=== PATIENT | male | born 1935 | race Hispanic/Latino ===

== ENCOUNTER 2017-04-23 17:33 | Inpatient (IN) | payer MEDICARE ==
[2017-04-23 17:39] VITALS: BMI 25.1
[2017-04-23 18:31] LABS: HEMOGLOBIN 9.2 g/dL (12.0-18.0); MEAN CELL VOLUME 97.1 fL (80.0-94.0); MEAN CORPUSCULAR HEMOGLOBIN 32.2 pg (27.0-31.0); MEAN CORPUSCULAR HGB CONC 33.1 g/dL (33.0-37.0); MEAN PLATELET VOLUME 10.7 fL (7.2-11.7); RBC 2.87 Mil/uL (4.40-5.90); RED CELL DISTRIBUTION WIDTH 15.7 % (11.5-14.5); WHITE BLOOD COUNT 6.2 K/uL (4.8-10.8)
--- NOTE | 2017-04-23 18:31 | C.PDOC ---
History Of Present Illness 81 y/o male presents to ED with complaints of having 2 syncopal episodes. 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 As per son, it lasted about 5 seconds and patient was pale but not sweaty. Then as patient was assisted by son and water was provided, patient had trouble swallowing and had his second syncopal episode; associated with incontinence of urine and stool. He was immediately awake but seemed a little confused but knew where he was. Pt states he did not feel the episodes coming and never experienced similar symptoms. He had no associated chest pain, palpitations, abdominal pain or headache. Denies visual disturbances, or any other physical complaints. Time Seen by Provider: 04/23/17 17:52 Chief Complaint (Nursing): Syncope History Per: Patient History/Exam Limitations: no limitations Onset/Duration Of Symptoms: Hrs Current Symptoms Are (Timing): Still Present Activity At Onset Of Symptoms: Other (Bending down) Associated Symptoms Preceding Syncopal Episode: denies: Lightheadedness, Worse With Standing, Vertigo, Vertigo Worse With Change In Head Position Seizure Or Post-ictal Symptoms: Incontinent Of Urine, Incontinent Of Stool. denies: Generalized Seizure Activity, Post-ictal Period Fall Associated With With Symptoms: No Recent travel outside of the [place]: No - Symptoms Of CVA Associated Symptoms: New Confusion. denies: Impaired Speech, Seizure Activity, New Vision Deficit(Left), New Vision Deficit(Right), Decreased Ability To Walk Recent Head Trauma: No Past Medical History Reviewed: Historical Data, Nursing Documentation, Vital Signs Vital Signs: Last Vital Signs Temp 97.2 F L 04/23/17 17:39 Pulse 62 04/23/17 17:39 Resp 20 04/23/17 17:39 BP 130/63 04/23/17 17:39 Pulse Ox 94 L 04/23/17 18:37 - Medical History PMH: HTN, Hyperlipidemia Surgical History: No Surg Hx Family History: States: No Known Family Hx - Social History Hx Alcohol Use: Yes Hx Substance Use: No Review Of Systems Constitutional: Negative for: Fever, Chills, Weakness Eyes: Negative for: Vision Change Respiratory: Negative for: Shortness of Breath Gastrointestinal: Negative for: Nausea, Vomiting, Abdominal Pain, Diarrhea Genitourinary: Negative for: Incontinence Neurological: Negative for: Weakness, Numbness, Confusion Physical Exam - Physical Exam Appears: Well, Non-toxic, No Acute Distress, Other (Awake and alert) Skin: Normal Color, Warm, Dry Head: Atraumatic, Normacephalic Eye(s): bilateral: Normal Inspection Oral Mucosa: Moist Neck: Supple Chest: Symmetrical, No Tenderness Cardiovascular: Rhythm Regular Respiratory: No Decreased Breath Sounds, No Accessory Muscle Use, No Rales, No Wheezing Gastrointestinal/Abdominal: Soft, No Tenderness Extremity: Normal ROM Neurological/Psych: Oriented x3, Normal Speech, Normal Cognition, Other (no focal deficits) Gait: Steady ED Course And Treatment - Laboratory Results Result Diagrams: 04/23/17 18:28 O2 Sat by Pulse Oximetry: 94 (RA) Pulse Ox Interpretation: Normal Progress Note: Ordered EKG, blood work, CXR, and urinalyis. Disposition - Disposition Disposition Time: 18:59 Condition: STABLE Forms: [facility] (Guinean) - Clinical Impression Clinical Impression: Syncope - Scribe Statement The provider has reviewed the documentation as recorded by the Scribluigi Duffy All medical record entries made by the Scribe were at my direction and personally dictated by me. I have reviewed the chart and agree that the record accurately reflects my personal performance of the history, physical exam, medical decision making, and the department course for this patient. I have also personally directed, reviewed, and agree with the discharge instructions and disposition. Physician Patient Turnover Patient Signed Over To: Theresa Bee Handoff Comments: pending labs and CT.
[2017-04-23 18:36] LABS: PLATELET COUNT 100 K/uL (130-400)
[2017-04-23 18:54] LABS: ALB/GLOB RATIO 0.9 (1.0-2.1); ALBUMIN 3.8 g/dL (3.5-5.0); ALT/SGPT 22 U/L (21-72); AST/SGOT 23 U/L (17-59); BLOOD UREA NITROGEN 22 mg/dL (9-20); CALCIUM 8.4 mg/dl (8.6-10.4); GFR AFRICAN-AMERICAN 59; GFR NON-AFRICAN AMERICAN 48
[2017-04-23 19:25] LABS: ANISOCYTOSIS SLIGHT; BANDS 1 % (0-2); HYPOCHROMIC SLIGHT; LYMPHOCYTE 6 % (20-40); MICROCYTOSIS SLIGHT; MONOCYTE 24 % (0-10); NEUTROPHIL 67 % (50-75); PLATELET ESTIMATE DECREASED (NORMAL); POLYCHROMIC SLIGHT; REACTIVE LYMPHOCYTES 2 % (0-0); TOTAL CELLS COUNTED 100
[2017-04-23 20:26] LABS: SQUAMOUS EPITHIAL < 1 /hpf (0-5); URINE BACTERIA OCC (<OCC); URINE BILIRUBIN NEGATIVE (NEGATIVE); URINE BLOOD NEGATIVE (NEGATIVE); URINE CLARITY Hazy (Clear); URINE COLOR Yellow (YELLOW); URINE GLUCOSE (UA) NORMAL (Normal); URINE LEUKOCYTE ESTERASE NEG Leu/uL (Negative); URINE NITRATE NEGATIVE (NEGATIVE); URINE PROTEIN NEGATIVE (NEGATIVE)
--- NOTE | 2017-04-23 21:34 | CT ---
EXAM: CT Head Without Intravenous Contrast CLINICAL HISTORY: 81 years old, male; Signs and symptoms; Syncope and collapse; Additional info: Syncope/seizure TECHNIQUE: Axial computed tomography images of the head/brain without intravenous contrast. All CT scans at this facility use one or more dose reduction techniques, viz.: automated exposure control; ma/kV adjustment per patient size (including targeted exams where dose is matched to indication; i.e. head); or iterative reconstruction technique. Coronal and sagittal reformatted images were created and reviewed. COMPARISON: No relevant prior studies available. FINDINGS: Brain: Dtya-ow-hmoijsfy atrophy. No intracranial hemorrhage. No mass. Minimal decreased attenuation within periventricular white matter. No definite edema. Ventricles: No hydrocephalus. Bones/joints: No acute fracture. Small intraarticular bodies within temporomandibular joints. Soft tissues: Unremarkable. Vasculature: Atherosclerotic disease of intracranial arteries. Sinuses: No acute sinusitis. Mastoid air cells: No mastoid effusion. Orbits: Unremarkable as visualized. IMPRESSION: 1. Nonspecific white matter changes. Acute infarction may be CT occult within first 24 hours. If a focal deficit persists, consider followup CT or MRI for further evaluation. 2. Incidental/non-acute findings are described above.
[2017-04-24 06:19] LABS: BASO % 0.6 % (0.0-2.0); EOS % 0.2 % (0.0-4.0); HEMOGLOBIN 9.5 g/dL (12.0-18.0); LYMPH % 15.3 % (20.0-40.0); MEAN CELL VOLUME 95.6 fL (80.0-94.0); MEAN CORPUSCULAR HEMOGLOBIN 32.6 pg (27.0-31.0); MEAN CORPUSCULAR HGB CONC 34.1 g/dL (33.0-37.0); MEAN PLATELET VOLUME 10.4 fL (7.2-11.7); MONO % 29.8 % (0.0-10.0); NEUT # 3.5 K/uL (1.8-7.0); NEUT % 54.1 % (50.0-75.0); PLATELET COUNT 88 K/uL (130-400); RBC 2.91 Mil/uL (4.40-5.90); RED CELL DISTRIBUTION WIDTH 14.9 % (11.5-14.5); WHITE BLOOD COUNT 6.5 K/uL (4.8-10.8)
[2017-04-24 06:40] LABS: ALBUMIN 3.6 g/dL (3.5-5.0); ALT/SGPT 21 U/L (21-72); AST/SGOT 23 U/L (17-59); BLOOD UREA NITROGEN 24 mg/dL (9-20); CALCIUM 8.5 mg/dl (8.6-10.4); GFR AFRICAN-AMERICAN > 60; GFR NON-AFRICAN AMERICAN 58; HDL CHOLESTEROL 24 mg/dL (30-70); IRON 70 ug/dL (49-181)
[2017-04-24 06:50] LABS: TOTAL IRON BINDING CAPACITY 251 ug/dL (250-450)
[2017-04-24 06:51] LABS: LDL CHOLESTEROL 55 mg/dL (0-129)
[2017-04-24 07:04] LABS: % IRON SATURATION 28 (20-55)
[2017-04-24 08:47] LABS: TOTAL CELLS COUNTED 100
[2017-04-24 08:48] LABS: ANISOCYTOSIS SLIGHT; LYMPHOCYTE 9 % (20-40); MONOCYTE 21 % (0-10); NEUTROPHIL 68 % (50-75); PLATELET ESTIMATE DECREASED (NORMAL); REACTIVE LYMPHOCYTES 2 % (0-0)
--- NOTE | 2017-04-24 08:48 | RAD ---
PROCEDURE: CHEST RADIOGRAPH, 1 VIEW HISTORY: AMS COMPARISON: None available. FINDINGS: LUNGS: Clear. PLEURA: No pneumothorax or pleural fluid seen. CARDIOVASCULAR: Normal. OSSEOUS STRUCTURES: No significant abnormalities. VISUALIZED UPPER ABDOMEN: Normal. OTHER FINDINGS: None. IMPRESSION: No active disease.
[2017-04-24 08:49] LABS: LARGE PLATELETS PRESENT
[2017-04-24] MEDS ORDERED: Home Med 1 UNIT (Atorvastatin [Lipitor] 1 TAB) PO SCH (10:00)
[2017-04-24] MEDS ORDERED: IRBESARTAN PO SCH (10:00)
[2017-04-24 10:30] VITALS: BP 154/82; PULSE 82; RESP 20; TEMP 98.3; O2SAT 97
[2017-04-24] MEDS ORDERED: Potassium Chloride 20 mEq ER Tab PO ONE (10:45)
--- NOTE | 2017-04-24 10:45 | CP.PCM.PN ---
Subjective - Date & Time of Evaluation Date of Evaluation: 04/24/17 Time of Evaluation: 10:30 - Subjective Subjective: [facility] #[id number] Objective - Vital Signs/Intake and Output Vital Signs (last 24 hours): Temp Pulse Resp BP Pulse Ox 98.3 F 82 20 154/82 H 97 04/24/17 10:28 04/24/17 10:28 04/24/17 10:28 04/24/17 10:28 04/24/17 10:28 - Medications Medications: Current Medications Doxazosin Mesylate (Cardura) 1 mg PO BID MELISSA Folic Acid (Folic Acid) 1 mg PO DAILY MELISSA Losartan Potassium (Cozaar) 100 mg PO DAILY MELISSA Potassium Chloride (K-Dur 20 Meq Er Tab) 40 meq PO ONCE ONE Stop: 04/24/17 10:46 Rosuvastatin Calcium (Crestor) 10 mg PO HS MELISSA Thiamine HCl (Vitamin B1 Tab) 100 mg PO DAILY MELISSA - Labs Labs: 04/24/17 06:15 04/24/17 06:15
--- NOTE | 2017-04-24 14:09 | CP.PCM.PN ---
Subjective - Date & Time of Evaluation Date of Evaluation: 04/24/17 Time of Evaluation: 13:40 - Subjective Subjective: Patient has decided to leave the hospital against medical advice. The patient is competent and understands the risks of leaving, including permanent disability and/or , and has had an opportunity to ask questions about his/ her condition. Patient accepts all risk and liability. Paper work filed. Attending notified by RN. The patient has been informed that he/she may return for care at any time, and patient will follow-up with PMD urgently. Patient does not want to wait until tomorrow to obtain an MRI. He wants to have his MRI at [facility], and understand the risk of leaving. He spoke with the Neurologist consulted. His son was present, and both parties understand the risk of leaving. Objective - Vital Signs/Intake and Output Vital Signs (last 24 hours): Temp Pulse Resp BP Pulse Ox 98.3 F 82 20 154/82 H 97 04/24/17 10:28 04/24/17 10:28 04/24/17 10:28 04/24/17 10:28 04/24/17 10:28 - Labs Labs: 04/24/17 06:15 04/24/17 06:15 - Constitutional Appears: Non-toxic, No Acute Distress - Head Exam Head Exam: ATRAUMATIC, NORMAL INSPECTION - Eye Exam Eye Exam: EOMI, Normal appearance, PERRL Pupil Exam: NORMAL ACCOMODATION - Neck Exam Neck Exam: Full ROM. absent: Lymphadenopathy - Respiratory Exam Respiratory Exam: Clear to Ausculation Bilateral, NORMAL BREATHING PATTERN. absent: Rhonchi, Wheezes - Cardiovascular Exam Cardiovascular Exam: REGULAR RHYTHM, +S1, +S2 - GI/Abdominal Exam GI & Abdominal Exam: Soft, Normal Bowel Sounds. absent: Tenderness - Extremities Exam Extremities Exam: absent: Pedal Edema, Tenderness - Neurological Exam Neurological Exam: Alert, Awake, CN II-XII Intact, Oriented x3 - Psychiatric Exam Psychiatric exam: Normal Affect, Normal Mood - Skin Skin Exam: Dry, Intact, Normal Color, Warm
--- NOTE | 2017-04-25 00:46 | HP ---
CHIEF COMPLAINT: Patient had a syncopal episode associated with bowel and bladder incontinence yesterday around 3:00 p.m. HISTORY OF PRESENT ILLNESS: Mr. Valente is an 81-year-old male with past medical history of hypertension; hyperlipidemia, abdominal aortic aneurysm status post stent placement, anemia, prostate CA status post radiation seed implant in 2001, who has been following up with doctors from [place], came in to the ED as patient has been staying with his son. All the history obtained from the patient. As per the patient, he has been in his usual state of health until yesterday. The night before, he took two Benadryl tablets. He woke up yesterday morning, he did not have his breakfast or lunch until 3 p.m., and they were making a wine at home. While making wine, he had a very small cup of wine for tasting. He usually drinks a glass of wine everyday, but yesterday after having a small cup of wine for tasting, he became very weak, he sat down. While he was sitting, he was slumping over to one side, which was noticed by his son, and the son grabbed him, and he passed out for about 8 to 10 seconds as per the patient. During that time, he had bowel and urinary incontinence, which never happened, and he never had any syncopal episodes prior. Immediately, after he woke up, but he was fully aware of all the surroundings. He denied any prior warning symptoms before having this. Denied any headache or dizziness. Denied any chest pain, shortness of breath, or wheezing. Denied any nausea, vomiting, abdominal pain, diarrhea, or constipation. Denied any urinary complaints. Denied any other neurologic symptoms. PAST MEDICAL HISTORY: Hypertension, hyperlipidemia, abdominal aortic aneurysm, anemia, prostate cancer. Denies any diabetes. Denies any coronary artery disease. PAST SURGICAL HISTORY: Underwent prostate seed implant in 2001 and stent placement for abdominal aortic aneurysm about a year ago. FAMILY HISTORY: Brother has irregular heart rhythm and had pacemaker. Younger brother also had coronary artery disease. PERSONAL HISTORY: He is a , having one son, worked for [employer], currently retired. SOCIAL HISTORY: He is an ex-smoker, smoked 1 pack per day about 20 years, quit about 40 years ago. He drinks almost everyday. Drinks a glass of wine. Denies any other drug abuse. ALLERGIES: NO KNOWN DRUG ALLERGIES. HOME MEDICATIONS: Include Lipitor 1 tablet daily, Cardura 4 mg p.o. daily, irbesartan. REVIEW OF SYSTEMS: As described in history of present illness. All other systems reviewed and were found to be negative. PHYSICAL EXAMINATION: GENERAL: Elderly male lying in bed in no acute distress. VITAL SIGNS: Blood pressure 154/82, pulse 82, respirations 20, temperature 98.3 degrees Fahrenheit, O2 sats 97% on room air. HEENT: Pupils equal, round, reacting to light and accommodation. Extraocular muscles intact. No icterus. No pallor. No oral thrush. No pharyngeal congestion. NECK: Supple. No JVD. No thyromegaly. CHEST: Moving equally bilaterally on respiration. LUNGS: Bilateral vesicular breath sounds. No wheezing. No rhonchi. CARDIOVASCULAR SYSTEM: S1 and S2 present, regular. ABDOMEN: Soft, nontender. Bowel sounds present. No guarding. No rigidity. No rebound tenderness noted. CENTRAL NERVOUS SYSTEM: Alert, awake, oriented x3. No focal deficits noted. EXTREMITIES: No edema. Palpable peripheral pulses. LABORATORY DATA: Labs done from ED, WBC 6.2, hemoglobin 9.2, hematocrit 27.9, platelets 100. Sodium 135, potassium 3.5, chloride 95, bicarb 25, BUN 22, creatinine 1.4, glucose 91, calcium 8.4. Total bilirubin 0.8, AST 23, ALT 22, alkaline phosphatase 65. Cardiac enzymes x2 negative. Total protein 10.7, albumin 3.8. Cholesterol 97, LDL 55, HDL 22, B12 of 836. Folate 19, TSH 3.63, prolactin 10.9. UA negative. Alcohol level 15. CT head negative for any acute changes. Chest x-ray, there is no active disease. ASSESSMENT AND PLAN: Elderly male with history of hypertension, hyperlipidemia, anemia, prostate cancer status post seed implants, status post stent placement for abdominal aortic aneurysm, admitted for an episode of syncope with seizure, and patient is being admitted for further management. 1. An episode of loss of consciousness for a brief period with bowel and bladder incontinence, rule out syncope versus seizure, rule out vasovagal, rule out hypoglycemic episode. 2. Anemia. 3. Thrombocytopenia. 4. Mild hypokalemia. 5. Ethyl alcohol intoxication. 6. Hypertension. 7. Hyperlipidemia. 8. History of abdominal aortic aneurysmal stent placement. 9. History of prostate cancer status post radiation seed implants. PLAN: Patient is being admitted to Telemetry with neuro checks. We will do serial cardiac enzymes, serial EKGs. We will check echocardiogram, carotid Doppler, check EEG and MRI. We will obtain neurology evaluation with Dr. Holley. We will give aspirin 325 mg p.o. daily. Patient claims that he has been following up with Hematology for his anemia. He was on iron pills until a month ago. He has scheduled appointment with line leader end of this month. We will monitor platelet count. No evidence of acute bleeding noted. Supplement potassium. We will repeat electrolytes. Continue with his home medication. Monitor blood pressure. Give thiamine and folic acid. We will repeat labs in the morning. We will add further recommendation after his workup is done. Lisa Bond MD
--- NOTE | 2017-04-25 01:24 | CON ---
DATE: ATTENDING PHYSICIAN: Dr. Bond. REASON FOR CONSULTATION: Syncope. HISTORY OF PRESENT ILLNESS: The patient is an 81-year-old, right-handed pleasant gentleman with past medical history of hypertension and hyperlipidemia, who was admitted because of syncopal episode as per the son and the patient who witnessed the event. The patient did not have his breakfast yesterday. Patient lives in [place] and the night before the event, was with his son in [place]. Patient came to [place], drank wine, and he did not have his breakfast nor the lunch and around noontime or afternoon, he bent while in the garage, and he had a small drink of wine and also the patient had two Benadryl the night before and when he bended, he suddenly collapsed to the floor and had a loss of consciousness for approximately 5 to 10 seconds as per son, and then when the son tried to sit him down on the chair, he became pale, and then he had another syncopal episode with bowel and urine incontinence, but no convulsions witnessed or jerky movements of the extremities. When he woke up, he was in daze and gradually regained his composure and orientation. Patient denies any preceding chest pain, palpitation, shortness of breath before or after the episode. Patient denies any history of seizures or loss of consciousness. In the past, patient had recently an operation on his aortic aneurysm, which was about 10 cm and had a stent in [place]. PAST MEDICAL HISTORY: As mentioned above. SOCIAL HISTORY: Nonsmoker, abuser. The patient lives alone, recently lost his few months ago. The patient has been under tremendous stress as per son. ALLERGIES: NO KNOWN ALLERGIC REACTION TO MEDICATIONS. MEDICATIONS: Doxazosin, losartan, rosuvastatin, folic acid, heparin, thiamine. PAST SURGICAL HISTORY: As mentioned above. REVIEW OF SYSTEMS: As per H and P and ER notes reviewed. PHYSICAL EXAMINATION: VITAL SIGNS: Blood pressure 130/63, pulse 62, respirations 20, temperature 97. NEUROLOGIC: Mental state: Patient is alert, awake, oriented x3. Normal naming and repetition, comprehension with attention span and short-term memory. Cranial nerves: Pupils 2 mm, bilaterally reactive. No facial asymmetry, no field defect. V1 to V3 intact. Decreased hearing on the right side, no nystagmus, no double vision, no field defect, no facial palsy. Accessory nerve intact. MOTOR: Normal tone in upper and lower extremities. No pronator drift. No tremors, action, rest, or postural. Fine finger movement, finger tapping, alternative movement intact. Upper extremities: Deltoid, elbow, bank consultant 5/5. Lower extremities: Hip flexion, knee flexion, extension, ankle dorsiflexion, and plantar extension 5/5. Deep tendon reflexes 1 to 2 in upper and lower extremities. Plantar flexion on both sides. SENSORY: Pinprick, light touch intact. COORDINATION: [id number] intact. Romberg is negative. The patient is able to stand on one foot and walk on heels and toes. IMAGING STUDIES: CAT scan of the brain consistent with periventricular white matter disease, otherwise no significant findings. LABORATORY DATA: Reviewed. White blood cells 6.5, red blood cells 2.91, hemoglobin 9.5, hematocrit 27, MCV 95, platelets 81. Sodium 135, potassium 3.5, chloride 97, BUN 22, creatinine 1.4, anion gap 17, carbon dioxide 25. IMPRESSION: Syncopal episode with two episodes in less than 10 minutes, most likely secondary to cerebral hypoperfusion versus hypoglycemia. In addition, the patient is severely anemic that probably contributed to recent hypoxic anoxic etiology for his loss of consciousness. PLAN: Carotid Doppler and EEG pending, but the patient wants to sign against medical advice and go back to [place], does not want to wait until tomorrow for the EEG and carotid Doppler and MRI. Neuro duran, the patient's exam is within normal limits. I have strongly recommended the patient and the son to be followed up tomorrow at [facility] because his primary physician is there as well. Thank you for the consultation. Dr. Hunt will follow up the patient tomorrow. Jasper Holley MD
--- NOTE | 2017-04-25 23:32 | CARD ---
APPROVED REPORT EKG Measurement Heart [id number] <Conclusion> Sinus rhythm with 1st degree AV block with premature atrial complexes Otherwise normal ECG
== END 2017-04-24 14:04 | disposition left against medical advice (07) | DRG 312 ==
LOC: C.ER 17:33 → C.9E 22:15 → C.6T 04-24 08:12
PROVIDERS: ADMIT Internal Medicine; ATTEND Internal Medicine
DX: R55 Syncope and collapse (principal); D69.6 Thrombocytopenia, unspecified; R56.9 Unspecified convulsions; R09.02 Hypoxemia; E87.6 Hypokalemia; D64.9 Anemia, unspecified; F10.129 Alcohol abuse with intoxication, unspecified; I10 Essential (primary) hypertension; R13.10 Dysphagia, unspecified; R32 Unspecified urinary incontinence; E78.5 Hyperlipidemia, unspecified; Z85.46 Personal history of malignant neoplasm of prostate; Z87.891 Personal history of nicotine dependence; Z92.3 Personal history of irradiation